=== PATIENT | female | born 1960 | race Caucasian/White ===

== ENCOUNTER 2019-11-27 20:00 | Outpatient (CLI) | payer MEDICARE, MEDICAID, SELFPAY | END 2019-11-27 20:01 | disposition home or self-care (01) | LOC: SLEEP 11-28 09:29 | PROVIDERS: Family Provider Chiropractor Orthopedic; Visit Provider Chiropractor Orthopedic | DX: G47.33 Obstructive sleep apnea (adult) (pediatric) (principal) | CPT/HCPCS: 95810; 95811 ==